=== PATIENT | male | born 2000 | race African-American/Black ===

== ENCOUNTER 2022-09-16 19:40 | Emergency (ER) | payer OTHER ==
[~2022-09-16] VITALS: Ht 170.2 cm; Wt 65.3 kg
[2022-09-16] MEDS ORDERED: IBUP-1022 PO (22:34)
[2022-09-16 22:48] VITALS: BP 114/63
== END 2022-09-16 22:49 | disposition home or self-care (01) ==
LOC: M ED 19:40
DX: S93.602A Unspecified sprain of left foot, initial encounter (principal); Y92.009 Unspecified place in unspecified non-institutional (private) residence as the place of occurrence of the external cause; Y93.67 Activity, basketball